=== PATIENT | female | born 1960 | race Caucasian/White ===

== ENCOUNTER 2020-06-03 15:55 | Inpatient (IN) | payer BC, SELFPAY ==
[~2020-06-03] VITALS: Ht 167.6 cm; Wt 63.0 kg
[~2020-06-03 15:55] MED LIST: PRO10 PO
[2020-06-03 16:00] VITALS: BP_SYST 123
[2020-06-03] MEDS ORDERED: ACETAMINOPHEN 500 MG TABLET PO ONE (17:00)
[2020-06-03] MEDS ORDERED: NACL 0.9% 1,000 ML IV ONE ×3 (17:00→21:00)
[2020-06-03] MEDS ORDERED: ONDANSETRON HCL 4 MG/2 ML VIAL IVP ONE (17:00)
[2020-06-03 17:28] LABS: BASOPHILS % (AUTO) 0.2 % (0.0-2.0); HEMATOCRIT 35.3 % (36-48); HEMOGLOBIN 11.8 g/dL (12.0-16.0); LYMPHOCYTES # (AUTO) 0.9 K/uL (1.0-5.5); LYMPHOCYTES % (AUTO) 7.9 % (20.5-51.5); MEAN CORPUSCULAR HEMOGLOBIN 30 pg (27-31); MEAN CORPUSCULAR HGB CONC 33 % (32-36); MEAN CORPUSCULAR VOLUME 90 fL (79.0-98.0); MONOCYTES % (AUTO) 8.5 % (1.7-9.3); NEUTROPHILS # (AUTO) 9.7 K/uL (1.8-7.7); NEUTROPHILS % (AUTO) 83.4 % (40.0-70.0); PLATELET COUNT (AUTO) 160 K/uL (130-430); RED BLOOD CELL COUNT(AUTO) 3.93 MIL/uL (4.2-6.2); WHITE BLOOD COUNT (AUTO) 11.6 K/uL (4.8-10.8)
[2020-06-03 17:51] LABS: CALCIUM 8.8 mg/dL (8.4-11.0); CREATININE 1.1 mg/dL (0.55-1.30); POTASSIUM 3.6 mmol/L (3.5-5.1)
[2020-06-03 17:56] LABS: ALBUMIN 3.5 g/dL (3.4-4.8); TOTAL BILIRUBIN 0.7 mg/dL (0.0-1.0)
[2020-06-03 18:11] LABS: BILIRUBIN,URINE NEGATIVE (NEGATIVE); BLOOD, URINE 2+ (NEGATIVE); CLARITY/URINE CLEAR (CLEAR); COLOR,URINE YELLOW (YELLOW); GLUCOSE,URINE NEGATIVE (NEGATIVE); KETONES,URINE NEGATIVE (NEGATIVE); LEUKOCYTE ESTERASE ,URINE 2+ (NEGATIVE); NITRITE, URINE POSITIVE (NEGATIVE); PROTEIN URINE 1+ (NEGATIVE)
[2020-06-03] MEDS ORDERED: cefTRIAXone 1 GM VIAL ONE (19:48)
[2020-06-03] MEDS ORDERED: cefTRIAXone 2 GM VIAL ONE (19:49)
[2020-06-03 20:02] LABS: BACTERIA,URINE MODERATE /HPF (None Seen); WBC,URINE >100 /HPF (0-3)
[2020-06-03 20:03] LABS: TRIPLE PHOSPHATE CRYSTAL,UR None Seen /HPF (None Seen)
[2020-06-03] MEDS ORDERED: ALBUTEROL SULFATE 0.083% 2.5 MG/3 ML VIAL.NEB INH PRN (20:45)
[2020-06-03] MEDS ORDERED: HYDROcodone/ACETAMIN 5-325 MG TAB (NORCO/ VICODIN) PO PRN (20:45)
[2020-06-03] MEDS ORDERED: MORPHINE 2 MG/ML INJ. SYRINGE IVP PRN (21:00)
[2020-06-03] MEDS ORDERED: NOREPINEPHRINE BITARTRATE 32 MG in NS 218 ML IV PRN (21:00)
[2020-06-03] MEDS ORDERED: VANCOMYCIN HCL 1,000 MG in NS 250 ML IV ONE (21:00)
[2020-06-03] MEDS ORDERED: estrogel (21:12)
[2020-06-03] MEDS ORDERED: VANCOMYCIN HCL 1000 MG/VIAL IV ONE ×2 (21:33)
[2020-06-03] MEDS: NACL 0.9% 1,000 ML IV SCH (21:53)
[2020-06-03 23:00] VITALS: BP_SYST 108
[2020-06-03] MEDS ORDERED: CEFEPIME 2 GM/VIAL (MAXIPIME) ONE (23:00)
[2020-06-03 23:34] VITALS: BP_SYST 101
[2020-06-04] VITALS (17 sets, daily range): BP systolic 88–144
[2020-06-04] MEDS ORDERED: NOREPINEPHRINE BITARTRATE 32 MG in NS 218 ML IV PRN (01:30)
[2020-06-04] MEDS: ACETAMINOPHEN 325 MG TABLET PO PRN ×4 (01:40→21:29)
[2020-06-04] MEDS: NACL 0.9% 1,000 ML IV SCH ×4 (03:14→23:25)
[2020-06-04] MEDS ORDERED: CEFEPIME 2 GM in D5W 100 ML IV SCH (06:00)
[2020-06-04 06:57] LABS: BASOPHILS % (AUTO) 0.2 % (0.0-2.0); EOSINOPHILS % (AUTO) 0.1 % (0.0-4.0); HEMATOCRIT 27.4 % (36-48); HEMOGLOBIN 9.1 g/dL (12.0-16.0); LYMPHOCYTES # (AUTO) 0.7 K/uL (1.0-5.5); LYMPHOCYTES % (AUTO) 8.6 % (20.5-51.5); MEAN CORPUSCULAR HEMOGLOBIN 30 pg (27-31); MEAN CORPUSCULAR HGB CONC 33 % (32-36); MEAN CORPUSCULAR VOLUME 90 fL (79.0-98.0); MONOCYTES # (AUTO) 0.8 K/uL (0.0-1.0); NEUTROPHILS # (AUTO) 6.8 K/uL (1.8-7.7); NEUTROPHILS % (AUTO) 81.1 % (40.0-70.0); PLATELET COUNT (AUTO) 130 K/uL (130-430); RED BLOOD CELL COUNT(AUTO) 3.05 MIL/uL (4.2-6.2); RED CELL DISTRIBUTION WIDTH 13.9 % (9.0-15.0); WHITE BLOOD COUNT (AUTO) 8.4 K/uL (4.8-10.8)
[2020-06-04 07:54] LABS: ALBUMIN 2.3 g/dL (3.4-4.8); CALCIUM 7.7 mg/dL (8.4-11.0); CREATININE 0.87 mg/dL (0.55-1.30); POTASSIUM 3.5 mmol/L (3.5-5.1); TOTAL BILIRUBIN 0.4 mg/dL (0.0-1.0)
[2020-06-04] MEDS: VANCOMYCIN HCL 750 MG/NS 250 ML IV SCH ×2 (08:47→21:27)
[2020-06-04] MEDS: FLUoxetine HCL 10 MG CAPSULE (PROzac) PO SCH ×2 (08:47→09:00)
[2020-06-04] MEDS: CEFEPIME 2 GM in D5W 100 ML IV SCH (14:33)
[2020-06-04] MEDS ORDERED: POLYETHYLENE GLYCOL 3350, 17 GM/ POWD.PACK PO ONE (23:15)
[2020-06-05] MEDS: CEFEPIME 2 GM in D5W 100 ML IV SCH ×2 (00:04→06:31)
[2020-06-05] MEDS: NACL 0.9% 1,000 ML IV SCH (06:05)
[2020-06-05] MEDS: FLUoxetine HCL 10 MG CAPSULE (PROzac) PO SCH (07:42)
[2020-06-05 08:00] VITALS: BP_SYST 117
[2020-06-05 08:23] LABS: BASOPHILS % (AUTO) 0.4 % (0.0-2.0); EOSINOPHILS # (AUTO) 0.1 K/uL (0.0-0.4); EOSINOPHILS % (AUTO) 1.5 % (0.0-4.0); HEMATOCRIT 27.1 % (36-48); HEMOGLOBIN 8.9 g/dL (12.0-16.0); LYMPHOCYTES # (AUTO) 0.5 K/uL (1.0-5.5); LYMPHOCYTES % (AUTO) 8.1 % (20.5-51.5); MEAN CORPUSCULAR HEMOGLOBIN 30 pg (27-31); MEAN CORPUSCULAR HGB CONC 33 % (32-36); MEAN CORPUSCULAR VOLUME 90 fL (79.0-98.0); MONOCYTES # (AUTO) 0.6 K/uL (0.0-1.0); MONOCYTES % (AUTO) 9.6 % (1.7-9.3); NEUTROPHILS # (AUTO) 4.8 K/uL (1.8-7.7); NEUTROPHILS % (AUTO) 80.4 % (40.0-70.0); PLATELET COUNT (AUTO) 144 K/uL (130-430); RED CELL DISTRIBUTION WIDTH 14.1 % (9.0-15.0); WHITE BLOOD COUNT (AUTO) 5.9 K/uL (4.8-10.8)
[2020-06-05 08:36] LABS: ALBUMIN 2.4 g/dL (3.4-4.8); CALCIUM 8.1 mg/dL (8.4-11.0); CREATININE 0.81 mg/dL (0.55-1.30); POTASSIUM 3.2 mmol/L (3.5-5.1); TOTAL BILIRUBIN 0.3 mg/dL (0.0-1.0)
[2020-06-05] MEDS: VANCOMYCIN HCL 750 MG/NS 250 ML IV SCH (08:57)
[2020-06-05 12:07] VITALS: BP_SYST 117
== END 2020-06-05 12:45 | disposition home or self-care (01) | DRG 871 ==
LOC: SED 15:55 → SIC 20:41 → STU 06-04 15:14
PROVIDERS: ADMIT Internal Medicine Hospice and Palliative Medicine; ATTEND Internal Medicine Hospice and Palliative Medicine
DX: A41.9 Sepsis, unspecified organism (principal); R65.21 Severe sepsis with septic shock; N12 Tubulo-interstitial nephritis, not specified as acute or chronic; D64.9 Anemia, unspecified; F32.9 Major depressive disorder, single episode, unspecified; Z20.822 Contact with and (suspected) exposure to COVID-19; R73.9 Hyperglycemia, unspecified; M35.00 Sjogren syndrome, unspecified; Z79.899 Other long term (current) drug therapy; Z88.8 Allergy status to other drugs, medicaments and biological substances
CPT/HCPCS: 36415; 71045; 80053; 81000-TC; 83605; 84484; 85025; 87040-TC; 87081; 87086; 93306; 96361; 96365; 96366; 96367; 96375; 99291; G0378; J0692; J0696; J2405; J3370; J7030; J7060